=== PATIENT | male | born 1965 | race American Indian/Alaskan Native ===

== ENCOUNTER 2021-03-21 02:02 | Inpatient (IN) | payer OTHER ==
--- NOTE | 2021-03-21 02:08 | Emergency Department Report ---
HPI - General Time Seen by Provider: 03/21/21 02:05 - HPI HPI: This is a 55-year-old -Armenian male who presents to the emergency department via EMS from home with a complaint of shortness of breath and a cough with some hemoptysis. The symptoms started about 1.5 hours ago and woke him from sleep. There was just one episode of the hemoptysis. EMS found the patient to have a room air oxygen saturation of about 80%. This improved upon being placed on a nonrebreather. He was also found to have a very elevated blood pressure. He does have a history of hypertension. He denies any tobacco or illicit drug use. No recent travel or sick contacts at home. He is not vaccinated for COVID-19, but denies any contact with anybody known to be positive for COVID-19. Other than the supplemental oxygen the patient was not given anything for his symptoms prior to presentation. ED Review of Systems ROS: Stated complaint: PJ Other details as noted in HPI Comment: All other systems reviewed and negative Constitutional: denies: chills, fever Eyes: denies: eye pain, vision change ENT: denies: ear pain, throat pain Respiratory: cough, shortness of breath Cardiovascular: denies: chest pain, edema Gastrointestinal: denies: abdominal pain, vomiting Genitourinary: denies: dysuria, discharge Musculoskeletal: denies: back pain, arthralgia Skin: denies: rash, lesions Neurological: denies: headache, weakness Physical Exam - Physical Exam Physical Exam: GENERAL: The patient is well-developed well-nourished. HENT: Normocephalic. Atraumatic. Patient has moist mucous membranes. EYES: Extraocular motions are intact. NECK: Supple. Trachea is midline. CHEST/LUNGS: Bilateral rhonchi heard. There is some tachypnea but no accessory muscle use. HEART/CARDIOVASCULAR: Regular. There is no tachycardia. There is no murmur. ABDOMEN: Abdomen is soft, nontender. Patient has normal bowel sounds. There is no abdominal distention. SKIN: Skin is warm and dry. NEURO: The patient is awake, alert, and oriented. The patient is cooperative. The patient has no focal neurologic deficits. Normal speech. MUSCULOSKELETAL: There is no tenderness or deformity. There is no limitation range of motion. - ABG Interpretation Ph: 7.47 PCO2: 38 PO2: 62 Bicarbonate: 27 Interpretation: other (hypoxemia) ED Medical Decision Making - Lab Data Result diagrams: 03/21/21 02:15 03/21/21 02:15 - EKG Data -: EKG Interpreted by Me EKG shows normal: sinus rhythm, axis (Left axis deviation), intervals, QRS complexes, ST-T waves (T wave inversions to the lateral leads) Rate: normal - EKG Data When compared to previous EKG there are: previous EKG unavailable Interpretation: other (Sinus rhythm at 97 bpm, left axis deviation, T wave inversions to the lateral leads. No ST elevation VT.) - Radiology Data Radiology results: image reviewed interpreted by me: Chest x-ray shows bilateral opacities concerning for interstitial edema versus pneumonia. No pneumothorax. No widened mediastinum. - Medical Decision Making This patient presented to the emergency department with shortness of breath, coughing and an episode of hemoptysis that started about 1 to 2 hours prior to arrival. On arrival the patient has some tachypnea and rhonchi heard. The patient was hypoxic on EMS arrival. I took the patient off of the nonrebreather and he went down to about 90% oxygen saturation. We got an ABG that shows hypoxemia without any significant acid-base disturbances. Chest x-ray shows bilateral opacities concerning for interstitial edema versus pneumonia. Patient's initial labs are mostly unremarkable except for some hypokalemia with a potassium of 3, and elevated proBNP of about 650, and very mild renal insufficiency with a GFR 55. The patient was given nebulized breathing treatments, antihypertensive medication, potassium, antibiotics, and a dose of Lasix for diuresis. The patient may have some new onset CHF. However, given the shortness of breath with hypoxemia and bilateral opacities on chest x-ray, as well as some lymphopenia, the patient needs to be ruled out for COVID-19. He has slightly elevated inflammatory markers of D-dimer and LDH. The patient has been made a PUI. The patient will be admitted to the hospital for further evaluation and treatment was accepted for admission by the hospitalist, Dr. Armstrong. Critical Care Time: Yes Critical care time in (mins) excluding proc time.: 35 Critical care attestation.: If time is entered above; I have spent that time in minutes in the direct care of this critically ill patient, excluding procedure time. Critical care time was spent on this patient in doing his initial evaluation, multiple reevaluations, ordering and interpretation of labs and imaging, supplemental oxygen for the hypoxemia, IV Lasix for diuresis, IV antibiotics, IV antihypertensive medication for his hypertensive urgency, and multiple discussions with the patient. Critical Care Time: 35 minutes ED Disposition Clinical Impression: Suspected 2019 novel coronavirus infection, Hypertensive urgency, Hypoxemia, New onset of congestive heart failure, Hypokalemia Disposition: OP ADMIT IP TO THIS HOSP Is pt being admited?: Yes Condition: Serious Time of Disposition: 03:59
--- NOTE | 2021-03-21 02:44 | XRay Report ---
CHEST 1 VIEW INDICATION: SOB COMPARISON: FINDINGS: SUPPORT DEVICES: None. HEART / MEDIASTINUM: No significant abnormality. LUNGS / PLEURA: Diffuse interstitial pulmonary process is present.. No pneumothorax. ADDITIONAL FINDINGS: IMPRESSION: 1. Diffuse pulmonary edema Signer Name: Tito Lares MD Signed: 03/21/2021 2:40 AM Workstation Name: [id number]
[2021-03-21 03:06] LABS: Basophils % (Auto) 0.8 % (0.0-1.8); Eosinophils # (Auto) 0.1 K/mm3 (0.0-0.4); Eosinophils % (Auto) 1.1 % (0.0-4.3); Hematocrit 48.5 % (35.5-45.6); Hemoglobin 16.2 gm/dl (11.8-15.2); Lymphocytes % (Auto) 19.5 % (13.4-35.0); Mean Corpuscular HGB Conc 33 % (32-34); Mean Corpuscular Volume 89 fl (84-94); Monocytes # (Auto) 0.6 K/mm3 (0.0-0.8); Monocytes % (Auto) 10.9 % (0.0-7.3); Platelet Count 115 K/mm3 (140-440); Red Blood Count 5.46 M/mm3 (3.65-5.03); Red Cell Distribution Width 14.5 % (13.2-15.2)
[2021-03-21 03:09] LABS: ABG Base Excess 3.7 mmol/L (-2.0-3.0); ABG HCO3 27.3 mmol/L (20.0-26.0); ABG Methemoglobin 0.5 % (0.0-1.5); ABG Oxygen Saturation 94.6 % (95.0-99.0); ABG PH 7.474 pH Units (7.350-7.450); ABG PO2 62.8 mm Hg (80.0-90.0)
[2021-03-21 03:14] LABS: INR 0.97 (0.87-1.13)
[2021-03-21 03:15] LABS: Partial Thromboplastin Time 28.1 Sec. (24.2-36.6)
[2021-03-21 03:22] LABS: Albumin 3.9 g/dL (3.9-5); Calcium 8.3 mg/dL (8.4-10.2)
[2021-03-21] MEDS ORDERED: POTASSIUM CHLORIDE ER 20 MEQ TAB PO ONE (03:26)
[2021-03-21] MEDS ORDERED: IPRATROPIUM 0.02% NEBU 2.5 ML IH ONE (03:26)
[2021-03-21] MEDS ORDERED: hydrALAZINE 20 MG/1 ML INJ IV ONE (03:26)
[2021-03-21] MEDS ORDERED: ALBUTEROL 2.5 MG/3 ML NEBU IH ONE (03:26)
[2021-03-21] MEDS ORDERED: FUROSEMIDE 20 MG/2 ML INJ IV ONE (03:41)
[2021-03-21] MEDS ORDERED: cefTRIAXone/NS 1 GM/50 ML 1 GM/50 ML BAG IV ONE (03:45)
[2021-03-21] MEDS ORDERED: dexAMETHasone 4 MG/ML VIAL IV ONE (03:45)
[2021-03-21] MEDS ORDERED: AZITHROMYCIN/NS 500 MG/250 ML 500 MG/250 ML BAG IV ONE (03:45)
[2021-03-21] MEDS ORDERED: ONDANSETRON 4 MG/2 ML INJ IV ONE (04:15)
[2021-03-21] MEDS ORDERED: ONDANSETRON 4 MG/2 ML INJ IV PRN (04:51)
[2021-03-21] MEDS ORDERED: ACETAMINOPHEN 325 MG TAB PO PRN (04:51)
--- NOTE | 2021-03-21 05:01 | History and Physical Report ---
History of Present Illness Date of examination: 03/21/21 Date of admission: 03/21/21 03:59 Chief complaint: Shortness of breath Hemoptysis History of present illness: 55-year-old -[place]uneian male with history of hypertension was brought to the emergency room because of shortness of breath and a cough with some hemoptysis. The symptoms started about 1.5 hours ago and woke him from sleep. There was just one episode of the hemoptysis. EMS found the patient to have a room air oxygen saturation of about 80%. This improved upon being placed on a nonrebreather. He was also found to have a very elevated blood pressure. He denies any tobacco or illicit drug use. No recent travel or sick contacts at home. He is not vaccinated for COVID-19, but denies any contact with anybody known to be positive for COVID-19. Other than the supplemental oxygen the pa tient was not given anything for his symptoms prior to presentation. Past History Past Medical History: hypertension Medications and Allergies Allergies Allergy/AdvReac Type Severity Reaction Status Date / Time No Known Allergies Allergy Unverified 03/21/21 03:12 Active Meds: Active Medications Acetaminophen (Acetaminophen 325 Mg Tab) 650 mg PO Q4H PRN PRN Reason: Pain MILD(1-3)/Fever >100.5/AKBAR Albuterol/Ipratropium (Ipratropium/Albuterol Sulfate 3 Ml Ampul.Neb) 1 ampul IH Q6HRT JESSIE Famotidine (Famotidine 20 Mg Tab) 20 mg PO BID JESSIE Furosemide (Furosemide 40 Mg/4 Ml Inj) 40 mg IV QDAY JESSIE Ceftriaxone Sodium (Rocephin/Ns 2 Gm/100 Ml) 2 gm in 100 mls @ 200 mls/hr IV Q2 4H JESSIE; Protocol Azithromycin (Zithromax/Ns) 500 mg in 250 mls @ 250 mls/hr IV Q24H JESSIE; Protocol Lisinopril (Lisinopril 5 Mg Tab) 5 mg PO QDAY JESSIE Ondansetron HCl (Ondansetron 4 Mg/2 Ml Inj) 4 mg IV Q8H PRN PRN Reason: Nausea And Vomiting Sodium Chloride (Sodium Chloride 0.9% 10 Ml Flush Syringe) 10 ml IV BID JESSIE Sodium Chloride (Sodium Chloride 0.9% 10 Ml Flush Syringe) 10 ml IV PRN PRN PRN Reason: LINE FLUSH Review of Systems Respiratory: cough, hemoptysis, shortness of breath, dyspnea on exertion Exam - Constitutional Vitals: Temp Pulse Resp BP Pulse Ox 98.3 F 69 20 189/119 93 03/21/21 02:03 03/21/21 04:02 03/21/21 04:02 03/21/21 04:31 03/21/21 04:31 General appearance: Present: no acute distress, well-nourished - EENT Eyes: Present: PERRL ENT: hearing intact, clear oral mucosa - Neck Neck: Present: supple, normal ROM - Respiratory Respiratory effort: normal Respiratory: bilateral: CTA, rhonchi - Cardiovascular Heart Sounds: Present: S1 & S2. Absent: rub, click - Extremities Extremities: pulses symmetrical, No edema Peripheral Pulses: within normal limits - Abdominal General gastrointestinal: Present: soft, non-tender, non-distended, normal bowel sounds Male genitourinary: Present: normal - Integumentary Integumentary: Present: clear, warm, dry - Musculoskeletal Musculoskeletal: gait normal, strength equal bilaterally - Psychiatric Psychiatric: appropriate mood/affect, intact judgment & insight - Neurologic Neurologic: CNII-XII intact, moves all extremities HEART Score - HEART Score Troponin: Troponin T 0.018 ng/mL (0.00-0.029) 03/21/21 02:15 Results - Labs CBC & Chem 7: 03/21/21 02:15 03/21/21 02:15 Labs: Laboratory Last Values WBC 5.2 K/mm3 (4.5-11.0) 03/21/21 02:15 RBC 5.46 M/mm3 (3.65-5.03) H 03/21/21 02:15 Hgb 16.2 gm/dl (11.8-15.2) H 03/21/21 02:15 Hct 48.5 % (35.5-45.6) H 03/21/21 02:15 MCV 89 fl (84-94) 03/21/21 02:15 MCH 30 pg (28-32) 03/21/21 02:15 MCHC 33 % (32-34) 03/21/21 02:15 RDW 14.5 % (13.2-15.2) 03/21/21 02:15 Plt Count 115 K/mm3 (140-440) L 03/21/21 02:15 Lymph % (Auto) 19.5 % (13.4-35.0) 03/21/21 02:15 [place] % (Auto) 10.9 % (0.0-7.3) H 03/21/21 02:15 Eos % (Auto) 1.1 % (0.0-4.3) 03/21/21 02:15 Baso % (Auto) 0.8 % (0.0-1.8) 03/21/21 02:15 Lymph # (Auto) 1.0 K/mm3 (1.2-5.4) L 03/21/21 02:15 [place] # (Auto) 0.6 K/mm3 (0.0-0.8) 03/21/21 02:15 Eos # (Auto) 0.1 K/mm3 (0.0-0.4) 03/21/21 02:15 Baso # (Auto) 0.0 K/mm3 (0.0-0.1) 03/21/21 02:15 Seg Neutrophils % 67.7 % (40.0-70.0) 03/21/21 02:15 Seg Neutrophils # 3.6 K/mm3 (1.8-7.7) 03/21/21 02:15 PT 13.4 Sec. (12.2-14.9) 03/21/21 02:15 INR 0.97 (0.87-1.13) 03/21/21 02:15 APTT 28.1 Sec. (24.2-36.6) 03/21/21 02:15 D-Dimer 256.70 ng/mlDDU (0-234) H 03/21/21 02:15 ABG pH 7.474 pH Units (7.350-7.450) H 03/21/21 03:02 ABG pCO2 38.0 mm Hg 03/21/21 03:02 ABG pO2 62.8 mm Hg (80.0-90.0) L 03/21/21 03:02 ABG HCO3 27.3 mmol/L (20.0-26.0) H 03/21/21 03:02 ABG O2 Saturation 94.6 % (95.0-99.0) L 03/21/21 03:02 ABG O2 Content 21.0 (0.0-44) 03/21/21 03:02 ABG Base Excess 3.7 mmol/L (-2.0-3.0) H 03/21/21 03:02 ABG Hemoglobin 16.2 gm/dl (14.0-18.0) 03/21/21 03:02 ABG Carboxyhemoglobin 1.7 % (0.0-5.0) 03/21/21 03:02 ABG Methemoglobin 0.5 % (0.0-1.5) 03/21/21 03:02 Oxyhemoglobin 92.6 % (95.0-99.0) L 03/21/21 03:02 FiO2 21 % 03/21/21 03:02 Sodium 142 mmol/L (137-145) 03/21/21 02:15 Potassium 3.0 mmol/L (3.6-5.0) L 03/21/21 02:15 Chloride 102.2 mmol/L (98-107) 03/21/21 02:15 Carbon Dioxide 31 mmol/L (22-30) H 03/21/21 02:15 Anion Gap 12 mmol/L 03/21/21 02:15 BUN 16 mg/dL (9-20) 03/21/21 02:15 Creatinine 1.6 mg/dL (0.8-1.3) H 03/21/21 02:15 Estimated GFR 55 ml/min 03/21/21 02:15 BUN/Creatinine Ratio 10 % 03/21/21 02:15 Glucose 125 mg/dL (75-100) H 03/21/21 02:15 Calcium 8.3 mg/dL (8.4-10.2) L 03/21/21 02:15 Total Bilirubin 0.40 mg/dL (0.1-1.2) 03/21/21 02:15 AST 19 units/L (5-40) 03/21/21 02:15 ALT 18 units/L (7-56) 03/21/21 02:15 Alkaline Phosphatase 93 units/L (35-129) 03/21/21 02:15 Troponin T 0.018 ng/mL (0.00-0.029) 03/21/21 02:15 NT-Pro-B Natriuret Pep 642.7 pg/mL (0-900) 03/21/21 02:15 Total Protein 7.3 g/dL (6.3-8.2) 03/21/21 02:15 Albumin 3.9 g/dL (3.9-5) 03/21/21 02:15 Albumin/Globulin Ratio 1.1 % 03/21/21 02:15 - Imaging and Cardiology Chest x-ray: report reviewed Assessment and Plan VTE prophylaxis?: Chemical Plan of care discussed with patient/family: Yes - Patient Problems (1) Hypoxemia Current Visit: Yes Status: Acute Plan to address problem: Admit the patient to the medical floor. Oxygen by nasal cannula 3 L/min. DuoNeb by nebulizer every 4 hours as needed. Dexamethasone 6 mg IV daily. Rocephin 2 g IV daily and Zithromax 500 mg IV daily. We will do the blood culture and sputum culture. Consult pulmonary if needed (2) Suspected 2019 novel coronavirus infection Current Visit: Yes Status: Acute Plan to address problem: Oxygen by nasal cannula 3 L/min. DuoNeb by nebulizer every 4 hours as needed. Dexamethasone 6 mg IV daily. Rocephin 2 g IV daily and Zithromax 500 mg IV daily. We will do the blood culture and sputum culture. Consult pulmonary if needed. Follow Covid markers and Covid PCR. Will consult ID (3) New onset of congestive heart failure Current Visit: Yes Status: Acute Plan to address problem: Lasix 40 mg daily. Fluid restriction maintain input output echocardiogram. Will consult cardiology if needed (4) Hypertensive urgency Current Visit: Yes Status: Acute Plan to address problem: Hydralazine 10 mg IV every 6 hours as needed. Lisinopril 5 mg p.o. daily. Cardiac diet. Monitor the blood pressure closely (5) Hypokalemia Current Visit: Yes Status: Acute Plan to address problem: Potassium 40 mEq p.o. every 4 hours x2 dose. Recheck BMP in the morning (6) DVT prophylaxis Current Visit: Yes Status: Acute Plan to address problem: Heparin 5000 units subcu every 8 hours for DVT prophylaxis. Pepcid 20 mg p.o. twice daily for GI prophylaxis. Patient is a full code
[2021-03-21] MEDS ORDERED: hydrALAZINE 20 MG/1 ML INJ IV PRN (05:04)
[2021-03-21 05:10] LABS: C-Reactive Protein 0.6 mg/dL (0.00-1.30)
--- NOTE | 2021-03-21 08:11 | Progress Note ---
Assessment and Plan (1) Hypoxemia Current Visit: Yes Status: Acute Plan to address problem: Admit the patient to the medical floor. Will wean oxygen now as tolerated.. DuoNeb by nebulizer every 4 hours as needed. Dexamethasone 6 mg IV daily. Reevaluate after Covid tests is back. Empirically Rocephin 2 g IV daily and Zithromax 500 mg IV daily. We will do the blood culture and sputum culture. Consult pulmonary if needed (2) Suspected 2019 novel coronavirus infection Current Visit: Yes Status: Acute Plan to address problem: Oxygen by nasal cannula 3 L/min. . Dexamethasone 6 mg IV daily. Rocephin 2 g IV daily and Zithromax 500 mg IV daily. We will do the blood culture and sputum culture. Consult pulmonary if needed. Follow Covid markers and Covid PCR. Will consult ID (3) New onset of congestive heart failure Current Visit: Yes Status: Acute Plan to address problem: Lasix 40 mg daily. Fluid restriction maintain input echocardiogram. This appears to be patient's main problem congestive heart failure with malignant hypertension. Patient blood pressure still not controlled. Will need echocardiogram. Pending today. Continue current diuresis with IV Lasix. Will consult cardiology if needed (4) Hypertensive urgency Current Visit: Yes Status: Acute Plan to address problem: Uncontrolled remains uncontrolled. Will add Coreg 12.5 mg 1 tab p.o. twice daily increase lisinopril from 5 to 20 mg. And continue hydralazine as needed.. Cardiac diet. Monitor the blood pressure closely (5) Hypokalemia Current Visit: Yes Status: Acute Plan to address problem: Potassium 40 mEq p.o. every 4 hours x2 dose. Recheck BMP in the morning (6) DVT prophylaxis Current Visit: Yes Status: Acute Plan to address problem: Heparin 5000 units subcu every 8 hours for DVT prophylaxis. Pepcid 20 mg p.o. twice daily for GI prophylaxis. Patient is a full code Subjective Date of service: 03/21/21 Principal diagnosis: Acute respiratory failure Interval history: 55-year-old -Hungarian male with history of hypertension was brought to the emergency room because of shortness of breath and a cough with some hemoptysis. The symptoms started about 1.5 hours ago and woke him from sleep. There was just one episode of the hemoptysis. EMS found the patient to have a room air oxygen saturation of about 80%. This improved upon being placed on a nonrebreather. He was also found to have a very elevated blood pressure. He denies any tobacco or illicit drug use. No recent travel or sick contacts at home. He is not vaccinated for COVID-19, but denies any contact with anybody known to be positive for COVID-19. Other than the supplemental oxygen the patient was not given anything for his symptoms prior to presentation. At present patient is up walking around without any oxygen at this time. Satting at 95%. Patient denies any chest pain but still has persistent shortness of breath at this time. No fever chills. Objective - Constitutional Vitals: Vital Signs - 12hr 03/21/21 03/21/21 03/21/21 02:03 02:32 02:46 Temperature 98.3 F Pulse Rate 94 H Pulse Rate [ Bilateral] Respiratory 16 Rate Respiratory Rate [Bilateral ] Blood Pressure 218/122 199/138 O2 Sat by Pulse 90 100 92 Oximetry 03/21/21 03/21/21 03/21/21 03:00 03:15 03:31 Temperature Pulse Rate Pulse Rate [ Bilateral] Respiratory Rate Respiratory Rate [Bilateral ] Blood Pressure 200/141 205/133 192/132 O2 Sat by Pulse 93 95 96 Oximetry 03/21/21 03/21/21 03/21/21 03:45 04:01 04:02 Temperature Pulse Rate Pulse Rate [ 69 Bilateral] Respiratory Rate Respiratory 20 Rate [Bilateral ] Blood Pressure 194/136 189/119 O2 Sat by Pulse 95 93 94 Oximetry 03/21/21 03/21/21 04:15 04:31 Temperature Pulse Rate Pulse Rate [ Bilateral] Respiratory Rate Respiratory Rate [Bilateral ] Blood Pressure 189/119 189/119 O2 Sat by Pulse 94 93 Oximetry General appearance: Present: no acute distress, well-nourished - EENT Eyes: PERRL, EOM intact ENT: hearing intact, clear oral mucosa Ears: bilateral: normal - Neck Neck: supple, normal ROM - Respiratory Respiratory effort: normal Respiratory: bilateral: CTA, diminished, rhonchi (Base) - Breasts Breasts: normal - Cardiovascular Rhythm: regular Heart Sounds: Present: S1 & S2. Absent: gallop, rub Extremities: pulses intact, No edema, normal color, Full ROM Extremity abnormal: edema, other (+2 pitting lower extremity edema) - Gastrointestinal General gastrointestinal: Present: soft, non-tender, non-distended, normal bowel sounds - Genitourinary Male genitourinary: normal - Integumentary Integumentary: clear, warm, dry - Musculoskeletal Musculoskeletal: 1, strength equal bilaterally - Neurologic Neurologic: moves all extremities - Psychiatric Psychiatric: memory intact, appropriate mood/affect, intact judgment & insight - Labs CBC & Chem 7: 03/21/21 02:15 03/21/21 02:15 Labs: Abnormal lab results 03/21/21 03/21/21 03/21/21 Range/Units 02:15 02:15 02:15 RBC 5.46 H (3.65-5.03) M/mm3 Hgb 16.2 H (11.8-15.2) gm/dl Hct 48.5 H (35.5-45.6) % Plt Count 115 L (140-440) K/mm3 [place] % (Auto) 10.9 H (0.0-7.3) % Lymph # (Auto) 1.0 L (1.2-5.4) K/mm3 D-Dimer 256.70 H (0-234) ng/mlDDU ABG pH (7.350-7.450) pH Units ABG pO2 (80.0-90.0) mm Hg ABG HCO3 (20.0-26.0) mmol/L ABG O2 Saturation (95.0-99.0) % ABG Base Excess (-2.0-3.0) mmol/L Oxyhemoglobin (95.0-99.0) % Potassium 3.0 L (3.6-5.0) mmol/L Carbon Dioxide 31 H (22-30) mmol/L Creatinine 1.6 H (0.8-1.3) mg/dL Glucose 125 H (75-100) mg/dL Calcium 8.3 L (8.4-10.2) mg/dL Lactate Dehydrogenase (91-180) units/L 03/21/21 03/21/21 Range/Units 03:02 04:26 RBC (3.65-5.03) M/mm3 Hgb (11.8-15.2) gm/dl Hct (35.5-45.6) % Plt Count (140-440) K/mm3 [place] % (Auto) (0.0-7.3) % Lymph # (Auto) (1.2-5.4) K/mm3 D-Dimer (0-234) ng/mlDDU ABG pH 7.474 H (7.350-7.450) pH Units ABG pO2 62.8 L (80.0-90.0) mm Hg ABG HCO3 27.3 H (20.0-26.0) mmol/L ABG O2 Saturation 94.6 L (95.0-99.0) % ABG Base Excess 3.7 H (-2.0-3.0) mmol/L Oxyhemoglobin 92.6 L (95.0-99.0) % Potassium (3.6-5.0) mmol/L Carbon Dioxide (22-30) mmol/L Creatinine (0.8-1.3) mg/dL Glucose (75-100) mg/dL Calcium (8.4-10.2) mg/dL Lactate Dehydrogenase 310 H (91-180) units/L - Imaging and cardiology EKG: report reviewed, image reviewed Chest x-ray: report reviewed, image reviewed HEART Score - HEART Score Troponin: Troponin T 0.018 ng/mL (0.00-0.029) 03/21/21 02:15
[2021-03-21] MEDS ORDERED: amLODIPine 5 MG TAB PO NR (08:30)
[2021-03-21] MEDS: HEPARIN 5,000 UNIT/1 ML VIAL SUB-Q SCH ×3 (09:30→21:06)
[2021-03-21] MEDS: POTASSIUM CHLORIDE ER 20 MEQ TAB PO SCH ×2 (09:30→12:56)
[2021-03-21] MEDS: IPRATROPIUM/ALBUTEROL SULFATE 3 ML AMPUL.NEB IH SCH ×3 (09:44→20:16)
[2021-03-21] MEDS ORDERED: LISINOPRIL 5 MG TAB PO SCH (10:00)
--- NOTE | 2021-03-21 10:26 | Electrocardiograph Report ---
[facility] Test Date: 2021-03-21 Test Time: 02:11:51 Pat Name: JOSE CRAMER Department: Room: A365 1 Gender: M Land [employer]ist: JESSIE : 1965 Requested By: VANIA RESTREPO Order Number: [id number] Reading MD: Arnoldo Banegas Measurements Intervals [place] Rate: 97 P: 47 CO: 152 QRS: -19 QRSD: 89 T: 103 QT: 373 QTc: 474 Interpretive Statements Sinus rhythm Left atrial enlargement Nonspecific T abnormalities, lateral leads No previous ECG available for comparison Electronically Signed On 03-21-2021 10:25:57 EDT by Arnoldo Banegas
[2021-03-21] MEDS: carvediloL 12.5 MG TAB PO SCH ×2 (12:56→21:06)
[2021-03-21] MEDS: FAMOTIDINE 20 MG TAB PO SCH ×2 (12:56→21:07)
[2021-03-21] MEDS: LISINOPRIL 20 MG TAB PO SCH (12:57)
[2021-03-21] MEDS: FUROSEMIDE 40 MG/4 ML INJ IV SCH (12:58)
[2021-03-22] MEDS: IPRATROPIUM/ALBUTEROL SULFATE 3 ML AMPUL.NEB IH SCH ×2 (01:16→08:10)
[2021-03-22] MEDS ORDERED: AZITHROMYCIN/NS 500 MG/250 ML 500 MG/250 ML BAG IV SCH (05:00)
[2021-03-22] MEDS ORDERED: cefTRIAXone/NS 2 GM/100 ML 2 GM/100 ML BAG IV SCH (05:00)
[2021-03-22] MEDS: HEPARIN 5,000 UNIT/1 ML VIAL SUB-Q SCH (05:10)
[2021-03-22] MEDS ORDERED: dexAMETHasone 4 MG/ML VIAL IV SCH (06:00)
[2021-03-22 06:35] LABS: Basophils % (Auto) 0.3 % (0.0-1.8); Eosinophils % (Auto) 0.4 % (0.0-4.3); Hematocrit 45.9 % (35.5-45.6); Hemoglobin 14.9 gm/dl (11.8-15.2); Lymphocytes # (Auto) 1.4 K/mm3 (1.2-5.4); Lymphocytes % (Auto) 12.3 % (13.4-35.0); Mean Corpuscular HGB Conc 33 % (32-34); Mean Corpuscular Volume 88 fl (84-94); Monocytes # (Auto) 0.9 K/mm3 (0.0-0.8); Monocytes % (Auto) 7.8 % (0.0-7.3); Platelet Count 128 K/mm3 (140-440); Red Blood Count 5.19 M/mm3 (3.65-5.03); Red Cell Distribution Width 14.5 % (13.2-15.2)
[2021-03-22 06:53] LABS: Calcium 8.2 mg/dL (8.4-10.2)
--- NOTE | 2021-03-22 08:34 | XRay Report ---
CHEST 1 VIEW INDICATION: sob. COMPARISON: One day prior. FINDINGS: Support devices: None. Heart: Stable. Lungs/Pleura: Previously seen prominent interstitial markings have improved. No pleural abnormality. IMPRESSION: 1. Interval improvement. Signer Name: Kvng Olea MD Signed: 03/22/2021 8:29 AM Workstation Name: [id number]
[2021-03-22] MEDS: carvediloL 12.5 MG TAB PO SCH (09:12)
[2021-03-22] MEDS: LISINOPRIL 20 MG TAB PO SCH (09:12)
[2021-03-22] MEDS ORDERED: FAMOTIDINE 10 MG TAB PO SCH (10:00)
--- NOTE | 2021-03-22 10:28 | Discharge Summary ---
Providers - Providers Date of Admission: 03/21/21 03:59 Date of discharge: 03/22/21 Attending physician: MARLON WOODS Primary care physician: ACCOUNTING BOOKKEEPER Hospitalization Condition: Good Pertinent studies: Echocardiogram shows ejection fraction of 50 to 55%. No dilated cardiomyopathy mild tricuspid regurgitation Hospital course: 55-year-old -[place] male with history of hypertension was brought to the emergency room because of shortness of breath and a cough with some hemoptysis. The symptoms started about 1.5 hours ago and woke him from sleep. There was just one episode of the hemoptysis. EMS found the patient to have a room air oxygen saturation of about 80%. This improved upon being placed on a nonrebreather. He was also found to have a very elevated blood pressure. . Other than the supplemental oxygen the patient was not given anything for his symptoms prior to presentation. Patient symptoms resolved after aggressive control of his blood pressure. Follow-up echocardiogram was unremarkable for heart failure. Patient also had follow-up chest x-ray which showed resolution of pulmonary edema. Patient's acute heart failure was secondary to malignant hypertension. Now corrected with aggressive blood pressure control. And diuresis. We will continue present blood pressure coverage with Coreg and lisinopril. This has been controlling patient's blood pressure. Currently 115-125/70-78. Patient walking around the room not hypoxic lower extremity edema resolved. Disposition: - TO HOME OR SELFCARE Final Discharge Diagnosis (Prints w/discharge instructions): Acute heart failure, hypertensive emergency - Discharge Diagnoses (1) DVT prophylaxis Status: Acute (2) Hypertensive urgency Status: Acute (3) Hypokalemia Status: Acute (4) Hypoxemia Status: Acute (5) New onset of congestive heart failure Status: Acute (6) Suspected 2019 novel coronavirus infection Status: Acute Core Measure Documentation - Palliative Care Palliative Care/ Comfort Measures: Not Applicable - Core Measures Any of the following diagnoses?: heart failure - Heart Failure Discharge Requirements SOLOMON/ARB for LVSD if EF <40%: Yes Beta caroline at discharge: Yes Exam - Constitutional Vitals: Temp Pulse Resp BP Pulse Ox 98.5 F 80 20 114/60 97 03/22/21 09:08 03/22/21 09:08 03/22/21 09:08 03/22/21 09:08 03/22/21 09:19 General appearance: Present: no acute distress, well-nourished - EENT Eyes: Present: PERRL ENT: hearing intact, clear oral mucosa - Neck Neck: Present: supple, normal ROM - Respiratory Respiratory effort: normal Respiratory: bilateral: CTA - Cardiovascular Heart Sounds: Present: S1 & S2. Absent: rub, click - Extremities Extremities: pulses symmetrical, No edema Peripheral Pulses: within normal limits - Abdominal General gastrointestinal: Present: soft, non-tender, non-distended, normal bowel sounds Male genitourinary: Present: normal - Integumentary Integumentary: Present: clear, warm, dry - Musculoskeletal Musculoskeletal: gait normal, strength equal bilaterally - Psychiatric Psychiatric: appropriate mood/affect, intact judgment & insight - Neurologic Neurologic: CNII-XII intact, moves all extremities Plan Activity: no restrictions, other (Low-sodium diet) Weight Bearing Status: Full Weight Bearing Diet: low cholesterol, low salt, other (Weight loss options discussed) Special Instructions: record daily BP diary Follow up with: PRIMARY CARE, [Primary Care Provider] - 3-5 Days Prescriptions: carvediloL [Coreg] 12.5 mg PO BID #60 tablet hydroCHLOROthiazide [HCTZ] 25 mg PO QDAY #30 lisinopriL [Zestril TAB] 20 mg PO QDAY #30 tablet
[2021-03-22] MEDS: FUROSEMIDE 40 MG/4 ML INJ IV SCH (10:37)
[2021-03-22 12:04] VITALS: BP 139/87
== END 2021-03-22 13:47 | disposition home or self-care (01) | DRG 291 ==
LOC: ED 02:02 → 3A 03:59 → 4A 04:47 → 3A 05:13
PROVIDERS: ADMIT Hospitalist; ATTEND Internal Medicine
PROC: 4A033R1 Measurement of Arterial Saturation, Peripheral, Percutaneous Approach (ICD-10-PCS; principal; 2021-03-21)
DX: I11.0 Hypertensive heart disease with heart failure (principal); N17.0 Acute kidney failure with tubular necrosis; R04.2 Hemoptysis; I16.1 Hypertensive emergency; E87.6 Hypokalemia; I50.9 Heart failure, unspecified; Z20.822 Contact with and (suspected) exposure to COVID-19; I16.0 Hypertensive urgency; I50.33 Acute on chronic diastolic (congestive) heart failure
CPT/HCPCS: 36415; 71045; 80048; 80053; 82728; 82803; 83615; 83880; 84145; 84484; 85025; 85379; 85610; 85730; 86140; 87040; 93005; 93306; 94640; 96374; 96375; G0378; J0360; J0456; J0696; J1100; J1644; J1940; J2405; U0003